=== PATIENT | male | born 1930 | race Caucasian/White ===

== ENCOUNTER 2021-12-26 16:09 | Emergency (ER) | payer OTHER ==
[~2021-12-26] VITALS: Ht 177.8 cm; Wt 77.1 kg
[2021-12-26 16:31] VITALS: BP_SYST 143
--- NOTE | 2021-12-26 16:32 | NUR ---
Patient triaged and placed in waiting room. VSS and patient appears in no acute distress at this time. Accompanied by SON IN LAW, awaiting available bed, and MD notified of need for MSE.
--- NOTE | 2021-12-26 16:35 | NUR ---
ER DR. MEYERS EXAMINING PT IN TRIAGE
--- NOTE | 2021-12-26 17:04 | NUR ---
EKG performed at by Ilda MELENDEZ. Physician given copy of EKG for review.
[2021-12-26 17:22] LABS: EOSINOPHILS % (AUTO) 0.1 % (0.0-4.0)
[2021-12-26 17:30] LABS: BILIRUBIN,URINE NEGATIVE (NEGATIVE); BLOOD, URINE 1+ (NEGATIVE); CLARITY/URINE SL CLOUDY (CLEAR); COLOR,URINE YELLOW (YELLOW); GLUCOSE,URINE 1+ (NEGATIVE); KETONES,URINE NEGATIVE (NEGATIVE); LEUKOCYTE ESTERASE ,URINE NEGATIVE (NEGATIVE); NITRITE, URINE NEGATIVE (NEGATIVE); PH,URINE 5.5 (5.0-8.0); PROTEIN URINE 1+ (NEGATIVE); UROBILINOGEN,URINE 0.2 (0.2-1.0)
[2021-12-26 17:36] LABS: BASOPHILS % (AUTO) 0.4 % (0.0-2.0); HEMATOCRIT 37.3 % (36-54); HEMOGLOBIN 12.5 g/dL (14.0-18.0); LYMPHOCYTES # (AUTO) 1.5 K/uL (1.0-5.5); LYMPHOCYTES % (AUTO) 23.3 % (20.5-51.5); MEAN CORPUSCULAR HEMOGLOBIN 29 pg (27-31); MEAN CORPUSCULAR HGB CONC 34 % (32-36); MEAN CORPUSCULAR VOLUME 86 fL (79.0-98.0); MONOCYTES # (AUTO) 0.8 K/uL (0.0-1.0); MONOCYTES % (AUTO) 12.7 % (1.7-9.3); NEUTROPHILS # (AUTO) 4.2 K/uL (1.8-7.7); NEUTROPHILS % (AUTO) 63.5 % (40.0-70.0); PLATELET COUNT (AUTO) 200 K/uL (130-430); RED BLOOD CELL COUNT(AUTO) 4.34 MIL/uL (4.2-6.2); RED CELL DISTRIBUTION WIDTH 15.5 % (9.0-15.0); WHITE BLOOD COUNT (AUTO) 6.6 K/uL (4.8-10.8)
[2021-12-26 17:50] LABS: BACTERIA,URINE FEW /HPF (None Seen); RBC,URINE 0-3 /HPF (0-3)
[2021-12-26] MEDS ORDERED: LIP40 PO (18:05)
--- NOTE | 2021-12-26 18:05 | NUR ---
Medication reconciliation completed with information provided by FAMILY. Any prior medication reconciliation on file was reviewed and corrected.
[2021-12-26 18:12] LABS: ANION GAP 7 (5-15); CALCIUM 8.2 mg/dL (8.4-11.0); CHLORIDE 103 mmol/L (98-107); CREATININE 1.14 mg/dL (0.55-1.30); GLUCOSE 156 mg/dL (70-99); POTASSIUM 3.7 mmol/L (3.5-5.1); SODIUM SERUM 137 mmol/L (136-145); UREA NITROGEN, BLOOD 21 mg/dL (8-21)
[2021-12-26] MEDS ORDERED: METF-834 PO (18:12)
[2021-12-26] MEDS ORDERED: TAMS-11 PO (18:12)
[2021-12-26] MEDS ORDERED: ASPI-1155 PO (18:12)
--- NOTE | 2021-12-26 18:12 | NUR ---
Medication reconciliation completed with information provided by FAMILY. Any prior medication reconciliation on file was reviewed and corrected.
[2021-12-26 18:23] LABS: ALANINE AMINOTRANSFERASE 32 U/L (12-78); ALBUMIN 2.9 g/dL (3.4-4.8); ASPARTATE AMINOTRANSFERASE 31 U/L (10-37); C-REACTIVE PROTEIN QUANT 7.1 mg/dL (0-0.5); TOTAL BILIRUBIN 0.5 mg/dL (0.0-1.0)
[2021-12-26 18:36] LABS: ACETAMINOPHEN < 1 ug/mL (1-30)
[2021-12-26] MEDS ORDERED: NACL 0.9% 1,000 ML IV ONE (19:00)
[2021-12-26 19:03] LABS: CREATINE KINASE MB 0.2 ng/mL (0-3.6)
--- NOTE | 2021-12-26 19:25 | NUR ---
Report given to Merary MELENDEZ
--- NOTE | 2021-12-26 19:34 | NUR ---
AL [facility]A REPORT FROM [facility]. PT STABLE NEEDS IV HYDRATION THEN WILL BE DISCHARGED HOME WITH [facility].
[2021-12-26 20:50] VITALS: BP_SYST 165
--- NOTE | 2021-12-26 20:52 | NUR ---
PT STABLE FOR D/C TO HOME WITH [facility]. HBP AND INCREASED TEMP DR. MEYERS MADE AWARE. NO CHANGES IN ORDERS RECIEVED. PT WILL TAKE EDS FOR HTN WHEN AT HOME TONIGHT. TO LOBBY AMB WITH ALL PAPERWORK IN HAND WITH STUDENT NURSE, RAUL
[2021-12-26 23:24] LABS: ACETONE, SERUM NEGATIVE (NEGATIVE)
== END 2021-12-26 20:50 | disposition home or self-care (01) ==
LOC: SED 16:09
DX: E86.0 Dehydration (principal); R53.1 Weakness; R53.83 Other fatigue; I10 Essential (primary) hypertension; Z79.899 Other long term (current) drug therapy
CPT/HCPCS: 99285; 96360; 70450; 71045; 80053; 82009; 82550; 82553; 85025; 86140; 36415; 93005; 76376; 83605; 81000; G0481; J7030; G0480